=== PATIENT | female | born 1980 | race Caucasian/White ===

== ENCOUNTER 2019-11-15 10:20 | Outpatient (RCR) | payer OTHER, SELFPAY | END 2019-11-29 00:01 | LOC: SPT 10:20 | PROVIDERS: Family Provider Family Medicine; Visit Provider Family Medicine | DX: S39.012D Strain of muscle, fascia and tendon of lower back, subsequent encounter (principal); X58.XXXD Exposure to other specified factors, subsequent encounter; Z71.9 Counseling, unspecified; M51.16 Intervertebral disc disorders with radiculopathy, lumbar region | CPT/HCPCS: 97032 ×4; 97110 ×3; 97161 ==

== ENCOUNTER 2019-11-30 06:00 | Outpatient (RCR) | payer OTHER, SELFPAY | END 2019-12-30 23:59 | disposition home or self-care (01) | LOC: SPT 06:00 | PROVIDERS: Family Provider Family Medicine; PCP Family Medicine; Visit Provider Family Medicine | DX: S39.012D Strain of muscle, fascia and tendon of lower back, subsequent encounter (principal); M51.16 Intervertebral disc disorders with radiculopathy, lumbar region | CPT/HCPCS: 97032; 97110; G0283 ==

== ENCOUNTER 2019-12-31 06:00 | Outpatient (RCR) | payer OTHER, SELFPAY | END 2020-01-28 23:59 | disposition home or self-care (01) | LOC: SPT 06:00 | PROVIDERS: Family Provider Family Medicine; PCP Family Medicine; Visit Provider Family Medicine | DX: S39.012D Strain of muscle, fascia and tendon of lower back, subsequent encounter (principal); X58.XXXD Exposure to other specified factors, subsequent encounter | CPT/HCPCS: 97110; G0283 ==

== ENCOUNTER 2020-01-26 07:25 | Outpatient (CLI) | payer OTHER, SELFPAY ==
--- NOTE | 2020-01-26 08:00 | MR_ITS ---
WS: [id number] MRI LUMBAR SPINE NONCONTRAST HISTORY: Low back pain COMPARISON: 07/15/2019 TECHNIQUE: Sagittal and axial multisequence imaging is submitted. Mild cervical spondylosis. Normal lumbar alignment with no compression fractures or marrow edema. 5 lumbar type vertebral bodies with partial sacralization of L5 on the LEFT as previously described by CT. Mild disc desiccation at L4-5 and L5-S1. L4 and L5 hemangiomas. Conus terminates normally at T12. L1-L2: Normal. L2-L3: Normal. L3-L4: Mild facet and ligamentum flavum arthropathy. No stenosis. L4-L5: Shallow central/LEFT paracentral disc protrusion contacting the ventral thecal sac. Disc protr usion is unchanged in size. Very minimal contact of the LEFT L5 nerve root. Mild encroachment in the LEFT subarticular recess. L5-S1: Normal. Paraspinal soft tissues are normal. MR/MR lumbar spine wo con* [id number] IMPRESSION: 1. Unchanged central to LEFT paracentral disc protrusion at L4-5 with mild con tact on the LEFT L5 nerve root and narrowing of the subarticular recesses. Cherrie lar to the prior study with no progression. 2. Partial sacralization of L5 on the LEFT.
--- NOTE | 2020-01-26 08:47 | XR_ITS ---
WS: [id number] Lumbar spine with flexion, extension, and neutral lateral, 01/26/2020 Clinical Data: Low back pain Comparison: Lumbar spine, 04/25/2019. Findings: No compression fractures or subluxation is seen. No disc space narrowing is seen. No limitation of motion or subluxation is seen. XR/XR lumbar spine f/e only [id number] Impression: Negative lateral lumbar spine.
== END 2020-01-26 07:26 | disposition home or self-care (01) ==
LOC: RADSHAW 07:26
PROVIDERS: Family Provider Family Medicine; PCP Family Medicine; Visit Provider Licensed Practical Nurse
DX: M51.17 Intervertebral disc disorders with radiculopathy, lumbosacral region (principal); M51.26 Other intervertebral disc displacement, lumbar region
CPT/HCPCS: 72120; 72148

== ENCOUNTER → 2020-09-06 17:04 | Outpatient (BNVA) | payer OTHER, SELFPAY | PROVIDERS: Family Provider Family Medicine; PCP Family Medicine; Visit Provider Nurse Practitioner | DX: S62.622A Displaced fracture of middle phalanx of right middle finger, initial encounter for closed fracture (principal); W23.0XXA Caught, crushed, jammed, or pinched between moving objects, initial encounter | CPT/HCPCS: 73130 ==

== ENCOUNTER 2020-09-17 14:40 | Outpatient (CLI) | payer OTHER, SELFPAY ==
[2020-09-17 14:58] LABS: Basophils # 0.1 10^3/uL (0.0-0.1); Basophils % 0.6 %; Eosinophils # 0.2 10^3/uL (0.0-0.8); Eosinophils % 2.6 %; Hematocrit 44.2 % (37.0-47.0); Hemoglobin 14.4 g/dL (11.5-15.3); Lymphocytes # 1.8 10^3/uL (0.8-4.8); Lymphocytes % 21.4 %; Mean Corpuscular HGB Conc 32.6 g/dL (30.0-36.0); Mean Corpuscular Hemoglobin 34.4 pg (28.0-34.0); Mean Corpuscular Volume 105.5 fL (81-99); Mean Platelet Volume 8.7 fL (7.4-10.4); Monocytes # 0.7 10^3/uL (0.2-0.9); Monocytes % 8.1 %; Neutrophils # 5.75 10^3/uL (1.8-7.7); Neutrophils % 66.8 %; Nucleated Red Blood Cells % 0 %; Platelet Count 294 10^3/cmm (130-400); Red Blood Count 4.19 10^6/uL (4.1-5.3); Red Cell Distribution Width 14.7 % (12.1-15.1); White Blood Count 8.6 10^3/uL (4.0-10.0)
--- NOTE | 2020-09-17 15:13 | MR_ITS ---
WS: [id number] INDICATION: Osteomyelitis TECHNIQUE: MR of the right hand without gadolinium enhancement. Sagittal T2, coronal T1, axial T2, ax ial T1, coronal 3-D FSPGR, coronal STIR FINDINGS: Correlation radiograph September 06, 2020. Again seen is the comminuted fracture fifth middle phalanx. Diffuse edema involving the middle phalanx with soft tissue edema in the fifth digit. Repla cement of the normal fatty T1 bone marrow signal. Normal bone marrow signal involving the distal phal anx. Tiny amount of edema in the distal fifth proximal phalanx. No other acute fractures. A few small erosions involving the metacarpal heads. No drainable abscess o r fluid collection. MR/MR hand RT wo con* [id number] IMPRESSION: 1. Prior comminuted fracture involving the fifth middle phalanx with replaceme nt normal fatty bone marrow signal and surrounding edema. Findings can be seen with bony fracture nonunion or possibly osteomyelitis in the appropriate clinic al setting.Correlation for infection. 2. Tiny amount of adjacent edema in the distal fifth proximal phalanx. Normal bone marrow signal in the distal phalanx. 3. No drainable abscess or fluid collection.
[2020-09-17 15:22] LABS: C Reactive Protein 0.5 mg/L (0.0-4.9)
[2020-09-17 16:14] LABS: Erythrocyte Sedimentation Rate 9 mm/hr (0-15)
== END 2020-09-17 14:41 | disposition home or self-care (01) ==
PROVIDERS: PCP Family Medicine; Visit Provider Orthopaedic Surgery
DX: M86.141 Other acute osteomyelitis, right hand (principal); S62.626A Displaced fracture of middle phalanx of right little finger, initial encounter for closed fracture; R60.0 Localized edema; X58.XXXA Exposure to other specified factors, initial encounter
CPT/HCPCS: 36415; 73218; 85025; 85651; 86140

== ENCOUNTER 2020-10-24 09:32 | Outpatient (RCR) | payer OTHER, SELFPAY | END 2020-10-29 23:59 | disposition home or self-care (01) | LOC: SPT 09:32 | PROVIDERS: PCP Family Medicine; Referring Provider Physical Medicine & Rehabilitation; Visit Provider Physical Medicine & Rehabilitation | DX: Z47.89 Encounter for other orthopedic aftercare (principal) | CPT/HCPCS: 97161 ==

== ENCOUNTER 2020-10-30 06:00 | Outpatient (RCR) | payer OTHER, SELFPAY | END 2020-11-29 23:59 | disposition home or self-care (01) | LOC: SPT 06:00 | PROVIDERS: PCP Family Medicine; Referring Provider Physical Medicine & Rehabilitation; Visit Provider Physical Medicine & Rehabilitation | DX: Z47.89 Encounter for other orthopedic aftercare (principal) | CPT/HCPCS: 97110; 97164 ==

== ENCOUNTER → 2020-11-24 10:40 | Outpatient (BNVA) | payer OTHER, SELFPAY | PROVIDERS: PCP Family Medicine; Visit Provider Nurse Practitioner Family | DX: Z20.828 Contact with and (suspected) exposure to other viral communicable diseases (principal) | CPT/HCPCS: 87426 ==

== ENCOUNTER → 2021-01-13 12:37 | Outpatient (BNVA) | payer OTHER, SELFPAY | PROVIDERS: PCP Family Medicine; Visit Provider Nurse Practitioner | DX: Z20.828 Contact with and (suspected) exposure to other viral communicable diseases (principal) | CPT/HCPCS: 36415; 87426 ==

== ENCOUNTER → 2021-02-19 12:26 | Outpatient (BNVA) | payer SELFPAY | PROVIDERS: PCP Family Medicine; Visit Provider Dermatology | DX: Z01.89 Encounter for other specified special examinations (principal) ==

== ENCOUNTER → 2021-08-15 17:07 | Outpatient (BNVA) | payer OTHER, SELFPAY | PROVIDERS: PCP Family Medicine; Visit Provider Registered Nurse Neonatal Intensive Care | DX: N39.0 Urinary tract infection, site not specified (principal) | CPT/HCPCS: 81000 ==

== ENCOUNTER → 2021-12-19 09:37 | Outpatient (BNVA) | payer OTHER, SELFPAY | PROVIDERS: PCP Family Medicine; Visit Provider Nurse Practitioner Family | DX: Z20.822 Contact with and (suspected) exposure to COVID-19 (principal); Z20.828 Contact with and (suspected) exposure to other viral communicable diseases | CPT/HCPCS: 87635 ==